=== PATIENT | male | born 1965 | race Hispanic/Latino ===

== ENCOUNTER 2019-02-19 06:18 | Inpatient (IN) | payer OTHER ==
[2019-02-19] MEDS ORDERED: Sodium Chloride 0.9% 1,000 ML IV SCH (06:30)
[2019-02-19] MEDS ORDERED: Iodixanol 320 MG/ML 100 ML BOTTLE IV ONE (06:38)
[2019-02-19] MEDS ORDERED: Sodium Chloride 0.9% 50 ML IV ONE (06:38)
--- NOTE | 2019-02-19 06:39 | ED PDOC ---
HPI:STROKE - Time Time: 06:25 - Historian Historian: Patient - Chief Complaint Chief Complaint: Slurred speech, Facial droop, Arm weakness - Onset Date: 02/19/19 Onset: This morning - Timing Timing: Currently Symptomatic - Location Location: Speech Locate right:: Face, Upper extremity - TPA Positive for Contraindication: No Reason tPA is not being Administered: Out of window for TPA (>6 hours) - Notes: Notes:: 53 year old male with HTN and diabetes presents to the ED via EMS for evaluation of a right upper extremity weakness, slurred speech and facial droop. Patient reports he was out drinking with his friends, came home at 00:30 and went to bed. He states that he woke up around 4 am and felt weakness in his right upper extremity. Patient states he then returned to sleep for an hour and awoke at 5AM with garbled speech and that his face looked asymmetrical. He waited an hour before calling EMS at approximately 6AM. According to EMS, when they arrived to the patient's residence he was hypertensive and hyperglycemic. Patient reports he has been non-compliant with medications for over two years. PMD: none provided NIHSS Stroke Scale - Date/Time Evaluation Performed Date Performed: 02/19/19 Time Performed: 06:25 When Was NIHSS Performed: Baseline - How Severe is the Stroke Level of Consciousness: 0=Alert LOC to Questions: 0=Both comments correct LOC to commands: 0=Obeys both correctly Best Gaze: 0=Normal Visual: 0=No visual loss Facial: 2=Partial (lower face paralysis) Motor Arm - Left: 0=No drift Motor Arm - Right: 1=Drift noted before 10 sec Motor Leg - Left: 0=No drift Motor Leg - Right: 0=No drift Limb Ataxia: 0=Absent Sensory: 0=Normal Best Language: 0=No aphasia Dysarthia: 1=Mild to moderate slurring Extinction & Inattention (Neglect): 0=Normal, no object Score: 4 rTPA Inclusion/Exclusion - Refusal of Treatment Patient Refused Treatment: No - Inclusion Criteria for Altepase All of the below criteria for inclusion were reviewed: Yes Patient is 18 years or Older: Yes The Clinical Diagnosis of Ischemic Stroke That is Causing a Potentially Disabling Neurological Deficit: Yes Time of Onset is Well Established to be Less Than 270 Minute Before Treatment Would Begin: Yes Risk/Benefit Discussed With Patient/Family Member Present: Yes Past Medical History Reviewed: Historical Data, Nursing Documentation, Vital Signs Vital Signs: Last Vital Signs Temp 98.5 F 02/19/19 06:23 Pulse 95 H 02/19/19 06:23 Resp 18 02/19/19 06:23 BP 172/90 H 02/19/19 06:23 Pulse Ox 98 02/19/19 06:23 - Medical History PMH: Diabetes, HTN - Family History Family History: States: Unknown Family Hx - Allergies Allergies/Adverse Reactions: Allergies Allergy/AdvReac Type Severity Reaction Status Date / Time No Known Allergies Allergy Verified 02/19/19 06:27 Review of Systems ROS Statement: Except As Marked, All Systems Reviewed And Found Negative Neurological: Positive for: Weakness (in right upper extremity), Change in Speech, Other (right sided facial droop) Physical Exam - Reviewed Nursing Documentation Reviewed: Yes Vital Signs Reviewed: Yes - Physical Exam Appears: Positive for: No Acute Distress Head Exam: Positive for: ATRAUMATIC, NORMAL INSPECTION, NORMOCEPHALIC Skin: Positive for: Normal Color, Warm, Dry Eye Exam: Positive for: EOMI, Normal appearance, PERRL ENT: Positive for: Normal ENT Inspection Neck: Positive for: Normal Cardiovascular/Chest: Positive for: Regular Rate, Rhythm. Negative for: Murmur Respiratory: Positive for: Normal Breath Sounds. Negative for: Respiratory Distress Back: Positive for: Normal Inspection Extremity: Positive for: Other (Drift in right upper extremity). Negative for: Deformity Neurological/Psych: Positive for: Awake, Alert, Normal Tone, Motor/Sensory Deficits (RUE weakness, 4/5), work checker II-XII (R sided facial droop), Facial Droop (right sided), Other (slurred speech; 4/5 strength in right upper extremity, 5/5 strength in all other extremities. ). Negative for: Symmetric/Intact Strength - Laboratory Results Result Diagrams: 02/19/19 06:41 02/19/19 06:41 - ECG ECG Rhythm: Positive for: Normal QRS, Normal ST Segment, Sinus Rhythm Rate: 84 O2 Sat by Pulse Oximetry: 98 (RA) Pulse Ox Interpretation: Normal - Core Measure Core Measure Indicators: Code Stroke - Critical Care Total Time (In Min): 90 Documented Critical Care: Time excludes all time spent performint seperately billable procedures Medical Decision Making Medical Decision Makin:25 MDM: Patient representing acute CVA of possible left MCA territory based on clinical findings Patient is well out of window of tPA given last known well time was 6 hours ago. Code Stroke called. Dr. Leal is aware of patient Orders: --Blood type and screen --CT Head --CTA Head and Neck Bundle --EKG --Alcohol serum --CMP --CBC --UDS --Hemoglobin A1C --Lipid panel --Troponin --PTT --PT --CXR --NS IV 1,000 mls --Stroke Team consult 715 --Patient's clincial status unchanged, labetolol ordered --CT/CTA negative, Dr. Leal updated --Will admit to Dr. Sharpe's service, will allow for permissive HTN --Condition: serious --- Scribe Attestation: Documented by Bere Iqbal, acting as a scribe Nidia Wolf MD Provider Scribe Attestation: All medical record entries made by the Scribe were at my direction and personally dictated by me. I have reviewed the chart and agree that the record accurately reflects my personal performance of the history, physical exam, medical decision making, and the department course for this patient. I have also personally directed, reviewed, and agree with the discharge instructions and d isposition. Disposition - Clinical Impression Clinical Impression: CVA (cerebral vascular accident) - Patient ED Disposition Is Patient to be Admitted: Yes Discussed With : Michael Leal Doctor Will See Patient In The: Hospital Counseled Patient/Family Regarding: Studies Performed - Disposition Disposition Time: 07:15 Condition: SERIOUS Forms: [facility] (Urdu)
[2019-02-19 06:44] LABS: BASO % 0.9 % (0.0-2.0); EOS # 0.2 K/uL (0.0-0.7); EOS % 3.9 % (0.0-4.0); HEMOGLOBIN 13.7 g/dL (12.0-18.0); LYMPH # 0.7 K/uL (1.0-4.3); LYMPH % 15.5 % (20.0-40.0); MEAN CELL VOLUME 91.2 fl (80.0-94.0); MEAN CORPUSCULAR HEMOGLOBIN 31.4 pg (27.0-31.0); MEAN CORPUSCULAR HGB CONC 34.5 g/dL (33.0-37.0); MEAN PLATELET VOLUME 8.5 fl (7.2-11.7); MONO # 0.6 K/uL (0.0-0.8); MONO % 11.5 % (0.0-10.0); NEUT # 3.3 K/uL (1.8-7.0); NEUT % 68.2 % (50.0-75.0); RBC 4.35 Mil/uL (4.40-5.90); RED CELL DISTRIBUTION WIDTH 12.3 % (11.5-14.5); WHITE BLOOD COUNT 4.8 K/uL (4.8-10.8)
[2019-02-19 06:49] LABS: INR 0.9; PROTHROMBIN TIME 10.2 Seconds (9.8-13.1)
[2019-02-19 06:51] LABS: PARTIAL THROMBOPLASTIN TIME 29.6 Seconds (25.6-37.1)
[2019-02-19] MEDS ORDERED: Labetalol 5mg/ml (4ml) IVP STA (06:58)
[2019-02-19] MEDS ORDERED: Labetalol 5mg/ml (4ml) ONE (07:01)
[2019-02-19 07:04] LABS: ALB/GLOB RATIO 1.6 (1.0-2.1); ALBUMIN 4.1 g/dL (3.5-5.0); ALT/SGPT 39 U/L (21-72); AST/SGOT 24 U/L (17-59); BLOOD UREA NITROGEN 16 mg/dl (9-20); CALCIUM 9.2 mg/dL (8.4-10.2); GFR NON-AFRICAN AMERICAN > 60; HDL CHOLESTEROL 45 MG/DL (30-70)
[2019-02-19 07:05] LABS: LDL CHOLESTEROL 149 mg/dL (0-129)
[2019-02-19] MEDS ORDERED: Insulin Regular 100 units/ml IV STA (07:18)
[2019-02-19 07:52] LABS: BARBITURATES, UR NEGATIVE (NEGATIVE); BENZODIAZEPINES, UR NEGATIVE (NEGATIVE); OPIATES, UR NEGATIVE (NEGATIVE); PHENCYCLIDINE, UR NEGATIVE (NEGATIVE)
[2019-02-19 08:28] LABS: VENOUS BLOOD GAS PCO2 42 mmHg (40-60); VENOUS BLOOD GAS PO2 54 mm/Hg (30-55)
[2019-02-19] MEDS ORDERED: Insulin Regular 100 units/ml ONE (09:11)
--- NOTE | 2019-02-19 09:25 | CT ---
Date of service: 02/19/2019 PROCEDURE: CT HEAD WITHOUT CONTRAST. HISTORY: R sided facial droop, RUE weakness COMPARISON: None available. TECHNIQUE: Axial computed tomography images were obtained through the head/brain without intravenous contrast. Radiation dose: Total exam DLP = 1711.99 mGy-cm. This CT exam was performed using one or more of the following dose reduction techniques: Automated exposure control, adjustment of the mA and/or kV according to patient size, and/or use of iterative reconstruction technique. FINDINGS: HEMORRHAGE: No intracranial hemorrhage. BRAIN: No mass effect or edema. No atrophy or chronic microvascular ischemic changes. VENTRICLES: Unremarkable. No hydrocephalus. CALVARIUM: Unremarkable. PARANASAL SINUSES: Mild chronic ethmoid, sphenoid and left maxillary sinusitis.. MASTOID AIR CELLS: Unremarkable as visualized. No inflammatory changes. OTHER FINDINGS: None. IMPRESSION: No intracranial mass, hemorrhage or evidence of acute infarct. Mild chronic ethmoid sinusitis. Otherwise unremarkable. The preliminary findings for this examination were reported by [facility] [[email or web address]] Radiology at 6:41 a.m. on 02/19/2019. There is concurrence of this report with the preliminary findings.
--- NOTE | 2019-02-19 09:43 | RAD ---
Date of service: 02/19/2019 HISTORY: Code Stroke COMPARISON: Not available TECHNIQUE: 1 view obtained. FINDINGS: LUNGS: No active pulmonary disease. PLEURA: No significant pleural effusion identified, no pneumothorax apparent. CARDIOVASCULAR: No aortic atherosclerotic calcification present. Normal cardiac size. No pulmonary vascular congestion. OSSEOUS STRUCTURES: No significant abnormalities. VISUALIZED UPPER ABDOMEN: Normal. OTHER FINDINGS: None. IMPRESSION: No active disease.
--- NOTE | 2019-02-19 11:36 | CT ---
Date of service: 02/19/2019 PROCEDURE: CT Angiography of the Head and Neck. HISTORY: R sided facial droop, slurred speech, RUE weakness COMPARISON: None available. TECHNIQUE: CT angiography of the head and neck was performed following intravenous contrast administration. Coronal and sagittal maximum intensity projection reformatted images were generated. Contrast Dose: Visipaque 320, 95 cc Radiation dose: Total exam DLP = 606.14 mGy-cm. This CT exam was performed using one or more of the following dose reduction techniques: Automated exposure control, adjustment of the mA and/or kV according to patient size, and/or use of iterative reconstruction technique. FINDINGS: INTERNAL CEREBRAL ARTERIES: Note is made of limited non calcified atherosclerosis of the bilateral cavernous internal carotid artery segments without significant stenosis. The skull base, petrous, and supraclinoid segments are bilaterally widely patent. ANTERIOR CEREBRAL ARTERIES: Unremarkable. A1 and A2 segments are widely patent. Smaller distal branches unremarkable, as visualized. MIDDLE CEREBRAL ARTERIES: Unremarkable. M1 and M2 segments are widely patent. Perisylvian branches grossly symmetric. POSTERIOR CIRCULATION: Basilar Artery: Unremarkable. Distal Vertebral Arteries: Unremarkable. Posterior Cerebral Arteries: Unremarkable. Posterior Inferior Cerebellar Arteries: Unremarkable. NECK CTA: Aortic Arch: Conjoint origin brachiocephalic and left common carotid artery. Common Carotid arteries: The bilateral common carotid appear widely patent from their origins to their bifurcations with no significant stenosis appreciated. No evidence to suggest common carotid artery dissection. Internal Carotid arteries: No significant stenosis is appreciated throughout the cervical internal carotid artery segments bilaterally and there is no evidence of dissection either. External Carotid arteries: Appear unremarkable bilaterally. Vertebral arteries: The bilateral vertebral arteries appear normal in caliber from their origins to their distal cervical segments. No significant stenosis or definite pattern of dissection. ANEURYSM/ VASCULAR MALFORMATIONS: None. OTHER FINDINGS: Nodular changes are suspected at the right thyroid lobe. Follow-up thyroid ultrasound advised if not already performed. Nodular mucosal or mucoid changes are identified at the left greater than right maxillary sinuses on a subacute to chronic basis. Underlying polyps not excluded. IMPRESSION: Limited noncalcified atherosclerosis suspected at the bilateral cavernous ICA segments bilaterally. No definite occlusion or significant stenosis identified within the intracranial circulation as demonstrated. Widely patent bilateral common and internal carotid arteries as discussed. Incidental nodular changes are suspected at the right thyroid lobe for which follow-up thyroid ultrasound is advised on elective basis. Sinus disease bilateral maxillary sinuses, as discussed above. Concordant with vascular interpretation by [facility] 02/19/2019, 7:14 a.m.. Discordant with incidental findings at the right lobe thyroid gland not included in preliminary report. PA review assigned.
--- NOTE | 2019-02-19 11:45 | MRI ---
Date of service: 02/19/2019 PROCEDURE: MRI BRAIN WITHOUT CONTRAST HISTORY: CVA COMPARISON: Noncontrast head CT 02/19/2019. TECHNIQUE: Multiplanar, multisequence MR images of the brain were obtained without intravenous contrast enhancement. FINDINGS: HEMORRHAGE: None DWI: There is restricted diffusion identified at the posterior superior left basal ganglia compatible with an acute or subacute infarct. No mass-effect related. BRAIN PARENCHYMA: Intrinsic signal throughout the curiel and white matter structures above below the tentorium appears within normal limits including the brainstem, despite diffusion-weighted findings noted above. There is no mass effect, parenchymal edema or loss of the corticomedullary differentiation. Midline brain anatomy appears within normal limits including the corpus callosum, brainstem and craniocervical junction. There is no suspicious extra-axial fluid collection identified. VENTRICLES: Unremarkable. No hydrocephalus. CRANIUM: Unremarkable. ORBITS: Grossly unremarkable. PARANASAL SINUSES/MASTOIDS: Mucosal inflammatory changes affect multiple bilateral ethmoid and right sphenoid sinuses as well as right frontal sinus. Questionable polyps or cysts are identified at left maxillary sinus with additional mucosal inflammatory changes associated. Mucosal inflammatory changes noted right maxillary sinus. VASCULAR SYSTEM: Skull base flow voids intact. OTHER FINDINGS: None. IMPRESSION: An acute subacute infarct affects the posterior superior left basal ganglia. No intracranial hemorrhage or definite mass effect appreciable at this time. Intrinsic signal throughout the brain is otherwise within normal limits. Incidental sinus disease noted as discussed above. Findings discussed with Dr. Brooks with written down and read back verification 02/19/2019, 11:30 a.m..
[2019-02-19 15:10] VITALS: BMI 34.4
[2019-02-19] MEDS: Insulin Lispro (humaLOG) 100 Units/ml Inj SC SCH ×2 (17:00→21:41)
[2019-02-19] MEDS: Sodium Chloride 0.9% 1,000 ML IV SCH (17:02)
--- NOTE | 2019-02-19 17:07 | CP.PCM.CON ---
History of Present Illness - History of Present Illness History of Present Illness: Neurology consult called by Dr. Tam Mr. Webb has NIHSS of 6, and was not TPA candidate because time of onset was not known and beyond the window. His symptoms started somewhere between midnight and 4 am. His stroke is most likely embolic and we will do ECHO with bubble study. Neurology consult dictated. Thank you Dr. Leal Neurology Past Patient History - Past Medical History & Family History Past Medical History?: Yes - Past Social History Smoking Status: Never Smoked - CARDIAC Hx Cardiac Disorders: Yes Hx Atrial Fibrillation: Yes (atrial flutter) Hx Hypertension: Yes - ENDOCRINE/METABOLIC Hx Endocrine Disorders: Yes - HEMATOLOGICAL/ONCOLOGICAL Hx AIDS: No Hx Human Immunodeficiency Virus (HIV): No - MUSCULOSKELETAL/RHEUMATOLOGICAL Hx Falls: No - PSYCHIATRIC Hx Substance Use: No - SURGICAL HISTORY Other/Comment: Ablation therapy - ANESTHESIA Hx Anesthesia: Yes Hx Anesthesia Reactions: No Meds Allergies/Adverse Reactions: Allergies Allergy/AdvReac Type Severity Reaction Status Date / Time No Known Allergies Allergy Verified 02/19/19 06:27 - Medications Medications: Current Medications Aspirin (Aspirin Supp) 300 mg NV DAILY APRIL Enoxaparin Sodium (Lovenox) 40 mg SC DAILY APRIL; Protocol Sodium Chloride (Sodium Chloride 0.9%) 1,000 mls @ 100 mls/hr IV .Q10H APRIL Sodium Chloride (Sodium Chloride 0.9%) 1,000 mls @ 100 mls/hr IV .Q10H APRIL Stop: 02/20/19 13:28 Insulin Human Lispro (Humalog) 0 units SC ACHS APRIL; Protocol Results - Vital Signs Recent Vital Signs: Last Vital Signs Temp 99.0 F 02/19/19 16:00 Pulse 79 02/19/19 16:00 Resp 15 02/19/19 16:00 BP 134/71 02/19/19 16:00 Pulse Ox 95 02/19/19 16:00 - Labs Result Diagrams: 02/19/19 06:41 02/19/19 06:41 Labs: Laboratory Results - last 24 hr 02/19/19 02/19/19 02/19/19 06:41 06:41 06:41 WBC 4.8 RBC 4.35 L Hgb 13.7 Hct 39.7 MCV 91.2 MCH 31.4 H MCHC 34.5 RDW 12.3 Plt Count 209 MPV 8.5 Neut % (Auto) 68.2 Lymph % (Auto) 15.5 L [place] % (Auto) 11.5 H Eos % (Auto) 3.9 Baso % (Auto) 0.9 Neut # (Auto) 3.3 Lymph # (Auto) 0.7 L [place] # (Auto) 0.6 Eos # (Auto) 0.2 Baso # (Auto) 0.0 PT INR APTT pO2 VBG pH VBG pCO2 VBG HCO3 VBG Total CO2 VBG O2 Sat (Calc) VBG Base Excess VBG Potassium Glucose Lactate FiO2 Crit Value Called To Crit Value Called By Crit Value Read Back Blood Gas Notified Time Sodium 133 Potassium 4.5 Chloride 98 Carbon Dioxide 25 Anion Gap 15 BUN 16 Creatinine 0.8 Est GFR ( Amer) > 60 Est GFR (Non-Af Amer) > 60 POC Glucose (mg/dL) Random Glucose 419 H* Hemoglobin A1c 11.5 H Calcium 9.2 Total Bilirubin 0.6 AST 24 ALT 39 Alkaline Phosphatase 79 Troponin I < 0.0120 Total Protein 6.6 Albumin 4.1 Globulin 2.5 Albumin/Globulin Ratio 1.6 Triglycerides 305 H Cholesterol 231 H LDL Cholesterol Direct 149 H HDL Cholesterol 45 Venous Blood Potassium Urine Opiates Screen Urine Methadone Screen Ur Barbiturates Screen Ur Phencyclidine Scrn Ur Amphetamines Screen U Benzodiazepines Scrn U Oth Cocaine Metabols U Cannabinoids Screen Alcohol, Quantitative < 10 Blood Type Antibody Screen BBK History Checked 02/19/19 02/19/19 02/19/19 06:41 06:42 07:15 WBC RBC Hgb Hct MCV MCH MCHC RDW Plt Count MPV Neut % (Auto) Lymph % (Auto) [place] % (Auto) Eos % (Auto) Baso % (Auto) Neut # (Auto) Lymph # (Auto) [place] # (Auto) Eos # (Auto) Baso # (Auto) PT 10.2 INR 0.9 APTT 29.6 pO2 VBG pH VBG pCO2 VBG HCO3 VBG Total CO2 VBG O2 Sat (Calc) VBG Base Excess VBG Potassium Glucose Lactate FiO2 Crit Value Called To Crit Value Called By Crit Value Read Back Blood Gas Notified Time Sodium Potassium Chloride Carbon Dioxide Anion Gap BUN Creatinine Est GFR ( Amer) Est GFR (Non-Af Amer) POC Glucose (mg/dL) Random Glucose Hemoglobin A1c Calcium Total Bilirubin AST ALT Alkaline Phosphatase Troponin I Total Protein Albumin Globulin Albumin/Globulin Ratio Triglycerides Cholesterol LDL Cholesterol Direct HDL Cholesterol Venous Blood Potassium Urine Opiates Screen Negative Urine Methadone Screen Negative Ur Barbiturates Screen Negative Ur Phencyclidine Scrn Negative Ur Amphetamines Screen Negative U Benzodiazepines Scrn Negative U Oth Cocaine Metabols Negative U Cannabinoids Screen Negative Alcohol, Quantitative Blood Type O NEGATIVE Antibody Screen Negative BBK History Checked No verified bt 02/19/19 02/19/19 08:22 11:11 WBC RBC Hgb Hct MCV MCH MCHC RDW Plt Count MPV Neut % (Auto) Lymph % (Auto) [place] % (Auto) Eos % (Auto) Baso % (Auto) Neut # (Auto) Lymph # (Auto) [place] # (Auto) Eos # (Auto) Baso # (Auto) PT INR APTT pO2 54 VBG pH 7.40 VBG pCO2 42 VBG HCO3 25.4 VBG Total CO2 27.3 VBG O2 Sat (Calc) 91.4 H VBG Base Excess 1.0 VBG Potassium 4.1 Glucose 404 H* Lactate 2.7 H FiO2 21.0 Crit Value Called To Dorinda hansen Crit Value Called By 23 Crit Value Read Back Y Blood Gas Notified Time 823 Sodium 133.0 Potassium Chloride 98.0 Carbon Dioxide Anion Gap BUN Creatinine Est GFR ( Amer) Est GFR (Non-Af Amer) POC Glucose (mg/dL) 400 H* Random Glucose Hemoglobin A1c Calcium Total Bilirubin AST ALT Alkaline Phosphatase Troponin I Total Protein Albumin Globulin Albumin/Globulin Ratio Triglycerides Cholesterol LDL Cholesterol Direct HDL Cholesterol Venous Blood Potassium 4.1 Urine Opiates Screen Urine Methadone Screen Ur Barbiturates Screen Ur Phencyclidine Scrn Ur Amphetamines Screen U Benzodiazepines Scrn U Oth Cocaine Metabols U Cannabinoids Screen Alcohol, Quantitative Blood Type Antibody Screen BBK History Checked
--- NOTE | 2019-02-19 19:06 | CARD ---
APPROVED REPORT Date of service: 02/19/2019 EKG Measurement Heart [id number] <Conclusion> Normal sinus rhythm Normal ECG
[2019-02-20] MEDS: Sodium Chloride 0.9% 1,000 ML IV SCH (02:26)
--- NOTE | 2019-02-20 02:31 | CON ---
DATE: 02/19/2019 Neurology consult called by Dr. Jean Marie Wolf in the emergency room. HISTORY OF PRESENT ILLNESS: Mr. Webb is a 53-year-old male with past medical history of diabetes and high blood pressure who was noncompliant with medications for several years, who presented at 06:25 in the morning after having gotten up with an acute onset of aphasia and right-sided facial droop as well as right arm weakness. He stated that he was drinking quite a bit last night and he came on at 12:30 in the morning, went to sleep, woke up around 4 a.m., felt weakness in the right upper extremity, went back to sleep and woke up at 5 a.m. with garbled speech with asymmetric face. He waited for an hour because he was confused as to what was happening. At 6 a.m., EMS picked him up and he was found to be hypertensive and hyperglycemic, but he is now the patient who has not gone to the physician, has not taken his medication and he denies having any of these episodes before. On examination this afternoon, the patient stated that he had no headache. No nausea, no vomiting. No diarrhea. NIH stroke scale was 4. PAST MEDICAL HISTORY: High blood pressure, diabetes type 2. SURGICAL HISTORY: Significant for ablation of his heart five years ago secondary to paroxysmal supraventricular tachycardia. It is noted that the patient was not placed on Coumadin, diagnosed with AFib, but that his profile stitching machine operator was quite suspicious. At that point, the patient stopped going to see his physician. FAMILY HISTORY AND SOCIAL HISTORY: The patient drinks several nights a week and admits to binge drinking several times a month. Social history, he is not working currently, no tobacco. ALLERGIES: NO KNOWN DRUG ALLERGIES. PHYSICAL EXAMINATION: GENERAL: The patient is alert, oriented x3. VITAL SIGNS: Blood pressure 132/90, respiratory rate 18, pulse 95, temperature 98.5. HEENT: Pupils are equal, round, and reactive to light. EOMI. NEUROLOGIC: Cranial nerves II through XII are normal, except for right-sided facial droop. Speech is fluent. There is dysarthria. He can name and repeat. There is no apraxia. Mini mental status is 30/30. Motor, tone is normal. Strength is 2/5 in the right upper extremity, electric bath attendant is 3/5. He is able to lift his arm above the bed but it falls after 5 seconds. Right leg is 4-/5, left upper and lower are 5/5. There is decreased fine touch and pin in the right face, arm and leg as compared to the left, but it is normal. Gait has not been tested. Reflex 2+ in upper and lower limbs bilaterally. Toes are downgoing. There is no clonus. LABORATORY DATA: CT of the head was done and is normal. CTA of the head and neck was done that shows the following. CTA of the head and neck shows that there is limited non-calcified atherosclerosis with bilateral bilaterally. There is no intracranial occlusion noted. MRI of the brain was done as well by the time I saw the patient and shows that he has a posterior superior left basal ganglia stroke. IMPRESSION: This is a 53-year-old male with possible atrial fibrillation, history of supraventricular tachycardia status post ablation, who now has an acute ischemic most likely embolic stroke in the left internal capsule resulting in right-sided weakness. PLAN: 1. Stroke workup. 2. Aspirin 325 mg. 3. Please keep blood pressure between 180 to 190/90 diastolic. 4. IV normal saline 100 mL per hour. 5. CTA of the head and neck will be further interpreted by endovascular team. 6. Echocardiogram with bubble study, possible MISAEL. 7. PT/ST/OT. 8. Prognosis is good. The patient should go to rehab after all workup is completed. 9. Hypercoagulable workup including factor V Leiden, protein C and S and prothrombin gene mutation, homocysteine. Thank you for this interesting consult. Michael Leal MD
[2019-02-20 04:49] LABS: HEMOGLOBIN 13.6 g/dL (12.0-18.0); MEAN CELL VOLUME 91.9 fl (80.0-94.0); MEAN CORPUSCULAR HEMOGLOBIN 31.4 pg (27.0-31.0); MEAN CORPUSCULAR HGB CONC 34.2 g/dL (33.0-37.0); RBC 4.31 Mil/uL (4.40-5.90); RED CELL DISTRIBUTION WIDTH 12.5 % (11.5-14.5); WHITE BLOOD COUNT 5.2 K/uL (4.8-10.8)
[2019-02-20 06:22] LABS: ALB/GLOB RATIO 1.6 (1.0-2.1); ALBUMIN 3.9 g/dL (3.5-5.0); ALT/SGPT 36 U/L (21-72); AST/SGOT 21 U/L (17-59); BLOOD UREA NITROGEN 12 mg/dl (9-20); GFR NON-AFRICAN AMERICAN > 60
[2019-02-20] MEDS: Insulin Lispro (humaLOG) 100 Units/ml Inj SC SCH ×4 (06:54→22:00)
[2019-02-20] MEDS ORDERED: Pneumococcal 23-Valent Vaccine IM ONE (08:00)
[2019-02-20] MEDS: Enoxaparin 40 mg Syringe SC SCH (09:34)
--- NOTE | 2019-02-20 10:33 | CT ---
Date of service: 02/20/2019 PROCEDURE: CT HEAD WITHOUT CONTRAST. HISTORY: follow up code stroke COMPARISON: Noncontrast head CT 02/19/2019 6:29 a.m. and noncontrast brain MRI 02/19/1910 10 a.m.. TECHNIQUE: Axial computed tomography images were obtained through the head/brain without intravenous contrast. Radiation dose: Total exam DLP = 929.0 mGy-cm. This CT exam was performed using one or more of the following dose reduction techniques: Automated exposure control, adjustment of the mA and/or kV according to patient size, and/or use of iterative reconstruction technique. FINDINGS: HEMORRHAGE: No intracranial hemorrhage. BRAIN: Lucency is now apparent at the superior and mid left basal ganglia extending somewhat into the periventricular white matter lateral to the left lateral ventricle with no mass effect appreciated at this time. This corresponds well with restricted diffusion pattern in prior brain MRI 02/19/2019. No definite additional interval focal lucency throughout the brain. For the cerebrum is unremarkable swells the cerebellum and brainstem. Exclusive of this area of lucency, good corticomedullary differentiation is noted. No interval suspicious extra-axial fluid collection identified. VENTRICLES: Unremarkable. No hydrocephalus. CALVARIUM: Unremarkable. PARANASAL SINUSES: Unremarkable as visualized. No significant inflammatory changes. MASTOID AIR CELLS: Unremarkable as visualized. No inflammatory changes. OTHER FINDINGS: None. IMPRESSION: Interval lucency superior and mid left basal ganglia now identified representing acute subacute infarct demonstrated in prior brain MRI 02/19/2019 as per above. No interval intracranial hemorrhage or mass-effect.
--- NOTE | 2019-02-20 14:40 | CP.PCM.PN ---
Subjective - Date & Time of Evaluation Date of Evaluation: 02/20/19 Time of Evaluation: 14:45 - Subjective Subjective: Neurology progress note: Patient continues to have NIHSS of 6, no headache, no nausea, no vomiting. No new complaints. ROS: as above. On exam: AAOX3. PERRL. Right sided facial droop. Slight dysarthria. right sided weakness 3/5 same as admission. Decreased ft, pin right face, arm, leg. gait not tested. +2 dtr ul and ll bl. Toes downgoing. No clonus. Objective - Vital Signs/Intake and Output Vital Signs (last 24 hours): Temp Pulse Resp BP Pulse Ox 98.5 F 73 11 L 166/90 H 97 02/20/19 12:00 02/20/19 12:00 02/20/19 12:00 02/20/19 12:00 02/20/19 12:00 Intake and Output: 02/20/19 02/20/19 06:59 18:59 Output Total 680 Balance -680 - Medications Medications: Current Medications Aspirin (Aspirin) 325 mg PO DAILY [facility] Last Admin: 02/20/19 10:15 Dose: 325 mg Atorvastatin Calcium (Lipitor) 40 mg PO DAILY [facility] Enoxaparin Sodium (Lovenox) 40 mg SC DAILY [facility]; Protocol Last Admin: 02/20/19 09:34 Dose: 40 mg Sodium Chloride (Sodium Chloride 0.9%) 1,000 mls @ 100 mls/hr IV .Q10H [facility] Insulin Human Lispro (Humalog) 0 units SC ACHS [facility]; Protocol Last Admin: 02/20/19 11:26 Dose: 6 units - Labs Labs: 02/20/19 04:15 02/20/19 04:15 PT 10.2 Seconds (9.8-13.1) 02/19/19 06:41 INR 0.9 02/19/19 06:41 APTT 31.0 Seconds (25.6-37.1) 02/20/19 04:15 Assessment and Plan - Assessment and Plan (Free Text) Assessment: CT head repeat: shows evolving hypodensity in left basal ganglia. Stroke workup: CTA complete. PT ST OT Echo with bubble study pending. Plan: 1. Continue aspirin 2. PT ST OT Our team will follow DR. Leal Neurology
[2019-02-21] MEDS: Enoxaparin 40 mg Syringe SC SCH (09:34)
[2019-02-21] MEDS: Insulin Lispro (humaLOG) 100 Units/ml Inj SC SCH ×4 (09:35→21:57)
--- NOTE | 2019-02-21 15:20 | CP.PCM.PN ---
Subjective - Date & Time of Evaluation Date of Evaluation: 02/21/19 Time of Evaluation: 10:00 - Subjective Subjective: Patient continues to have right sided facial droop, right sided arm and leg weakness. I am not appreciating much improvement since yesterday. ECHO pending. ROS; malaise, fatigue, no headache, no nausea, no vomiting. On exam: NIHSS: 6 AAOX3. PERRL. Cn 2-12 normal. Right sided facial droop. RIght sided weakness arm more than leg: biceps, triceps: 3/5, pain coordinator: 4/5 Right le-/5 diffusely DTR: +1 ul and ll bl. Toes downgoing. No clonus. Gait not tested. Objective - Vital Signs/Intake and Output Vital Signs (last 24 hours): Temp Pulse Resp BP Pulse Ox 98.1 F 68 18 148/93 H 100 02/21/19 11:49 02/21/19 11:49 02/21/19 11:49 02/21/19 11:49 02/21/19 11:49 - Medications Medications: Current Medications Aspirin (Aspirin) 325 mg PO DAILY [facility] Last Admin: 02/21/19 09:34 Dose: 325 mg Atorvastatin Calcium (Lipitor) 40 mg PO DAILY [facility] Last Admin: 02/21/19 09:35 Dose: 40 mg Clopidogrel Bisulfate (Plavix) 75 mg PO DAILY [facility] Enoxaparin Sodium (Lovenox) 40 mg SC DAILY [facility]; Protocol Last Admin: 02/21/19 09:34 Dose: 40 mg Sodium Chloride (Sodium Chloride 0.9%) 1,000 mls @ 100 mls/hr IV .Q10H [facility] Insulin Human Lispro (Humalog) 0 units SC [facility]; Protocol Last Admin: 02/21/19 12:30 Dose: 6 units - Labs Labs: 02/20/19 04:15 02/20/19 04:15 PT 10.2 Seconds (9.8-13.1) 02/19/19 06:41 INR 0.9 02/19/19 06:41 APTT 31.0 Seconds (25.6-37.1) 02/20/19 04:15 Assessment and Plan - Assessment and Plan (Free Text) Assessment: 53 yr old male with acute stroke
[2019-02-22] MEDS: Insulin Lispro (humaLOG) 100 Units/ml Inj SC SCH ×4 (06:49→22:02)
[2019-02-22] MEDS: Enoxaparin 40 mg Syringe SC SCH (10:21)
--- NOTE | 2019-02-23 04:47 | CP.PCM.HP ---
Past Patient History - Past Medical History & Family History Past Medical History?: Yes - Past Social History Smoking Status: Never Smoked - CARDIAC Hx Cardiac Disorders: Yes Hx Atrial Fibrillation: Yes (atrial flutter) Hx Hypertension: Yes - ENDOCRINE/METABOLIC Hx Endocrine Disorders: Yes - HEMATOLOGICAL/ONCOLOGICAL Hx AIDS: No Hx Human Immunodeficiency Virus (HIV): No - MUSCULOSKELETAL/RHEUMATOLOGICAL Hx Falls: No - PSYCHIATRIC Hx Substance Use: No - SURGICAL HISTORY Other/Comment: Ablation therapy - ANESTHESIA Hx Anesthesia: Yes Hx Anesthesia Reactions: No Meds Allergies/Adverse Reactions: Allergies Allergy/AdvReac Type Severity Reaction Status Date / Time No Known Allergies Allergy Verified 02/19/19 06:27 Results - Vital Signs Recent Vital Signs: Last Vital Signs Temp 97.6 F 02/23/19 00:21 Pulse 64 02/23/19 00:21 Resp 18 02/23/19 00:21 BP 143/83 02/23/19 00:21 Pulse Ox 97 02/23/19 00:21 - Labs Result Diagrams: 02/20/19 04:15 02/20/19 04:15 Labs: Laboratory Results - last 24 hr 02/20/19 02/22/19 02/22/19 16:09 05:35 10:49 POC Glucose (mg/dL) 247 H 257 H 312 H 02/22/19 02/22/19 15:38 21:17 POC Glucose (mg/dL) 276 H 242 H
--- NOTE | 2019-02-23 04:48 | CP.PCM.PN ---
Subjective - Date & Time of Evaluation Date of Evaluation: 02/20/19 Objective - Vital Signs/Intake and Output Vital Signs (last 24 hours): Temp Pulse Resp BP Pulse Ox 97.6 F 64 18 143/83 97 02/23/19 00:21 02/23/19 00:21 02/23/19 00:21 02/23/19 00:21 02/23/19 00:21 - Medications Medications: Current Medications Aspirin (Aspirin) 325 mg PO DAILY [facility] Last Admin: 02/22/19 10:20 Dose: 325 mg Atorvastatin Calcium (Lipitor) 40 mg PO DAILY [facility] Last Admin: 02/22/19 10:20 Dose: 40 mg Clopidogrel Bisulfate (Plavix) 75 mg PO DAILY [facility] Last Admin: 02/22/19 10:21 Dose: 75 mg Enoxaparin Sodium (Lovenox) 40 mg SC DAILY [facility]; Protocol Last Admin: 02/22/19 10:21 Dose: 40 mg Sodium Chloride (Sodium Chloride 0.9%) 1,000 mls @ 100 mls/hr IV .Q10H [facility] Insulin Human Lispro (Humalog) 0 units SC ACHS [facility]; Protocol Last Admin: 02/22/19 22:02 Dose: Not Given - Labs Labs: 02/20/19 04:15 02/20/19 04:15 PT 10.2 Seconds (9.8-13.1) 02/19/19 06:41 INR 0.9 02/19/19 06:41 APTT 31.0 Seconds (25.6-37.1) 02/20/19 04:15
--- NOTE | 2019-02-23 04:49 | CP.PCM.PN ---
Subjective - Date & Time of Evaluation Date of Evaluation: 02/21/19 Objective - Vital Signs/Intake and Output Vital Signs (last 24 hours): Temp Pulse Resp BP Pulse Ox 97.6 F 64 18 143/83 97 02/23/19 00:21 02/23/19 00:21 02/23/19 00:21 02/23/19 00:21 02/23/19 00:21 - Medications Medications: Current Medications Aspirin (Aspirin) 325 mg PO DAILY [facility] Last Admin: 02/22/19 10:20 Dose: 325 mg Atorvastatin Calcium (Lipitor) 40 mg PO DAILY [facility] Last Admin: 02/22/19 10:20 Dose: 40 mg Clopidogrel Bisulfate (Plavix) 75 mg PO DAILY [facility] Last Admin: 02/22/19 10:21 Dose: 75 mg Enoxaparin Sodium (Lovenox) 40 mg SC DAILY [facility]; Protocol Last Admin: 02/22/19 10:21 Dose: 40 mg Sodium Chloride (Sodium Chloride 0.9%) 1,000 mls @ 100 mls/hr IV .Q10H [facility] Insulin Human Lispro (Humalog) 0 units SC ACHS [facility]; Protocol Last Admin: 02/22/19 22:02 Dose: Not Given - Labs Labs: 02/20/19 04:15 02/20/19 04:15 PT 10.2 Seconds (9.8-13.1) 02/19/19 06:41 INR 0.9 02/19/19 06:41 APTT 31.0 Seconds (25.6-37.1) 02/20/19 04:15
--- NOTE | 2019-02-23 04:50 | CP.PCM.PN ---
Subjective - Date & Time of Evaluation Date of Evaluation: 02/22/19 Objective - Vital Signs/Intake and Output Vital Signs (last 24 hours): Temp Pulse Resp BP Pulse Ox 97.6 F 64 18 143/83 97 02/23/19 00:21 02/23/19 00:21 02/23/19 00:21 02/23/19 00:21 02/23/19 00:21 - Medications Medications: Current Medications Aspirin (Aspirin) 325 mg PO DAILY [facility] Last Admin: 02/22/19 10:20 Dose: 325 mg Atorvastatin Calcium (Lipitor) 40 mg PO DAILY [facility] Last Admin: 02/22/19 10:20 Dose: 40 mg Clopidogrel Bisulfate (Plavix) 75 mg PO DAILY [facility] Last Admin: 02/22/19 10:21 Dose: 75 mg Enoxaparin Sodium (Lovenox) 40 mg SC DAILY [facility]; Protocol Last Admin: 02/22/19 10:21 Dose: 40 mg Sodium Chloride (Sodium Chloride 0.9%) 1,000 mls @ 100 mls/hr IV .Q10H [facility] Insulin Human Lispro (Humalog) 0 units SC ACHS [facility]; Protocol Last Admin: 02/22/19 22:02 Dose: Not Given - Labs Labs: 02/20/19 04:15 02/20/19 04:15 PT 10.2 Seconds (9.8-13.1) 02/19/19 06:41 INR 0.9 02/19/19 06:41 APTT 31.0 Seconds (25.6-37.1) 02/20/19 04:15
[2019-02-23] MEDS: Insulin Lispro (humaLOG) 100 Units/ml Inj SC SCH ×3 (09:51→17:35)
[2019-02-23] MEDS: Enoxaparin 40 mg Syringe SC SCH (09:53)
--- NOTE | 2019-02-23 11:41 | PCM.STROKE ---
Interval History Stroke Date: 02/19/19 No other interval changes in current, PMHx, FHx, SocHx, ROS: other than on note by: (initial neuro h&p) - Treatment Antiplatelet: Acetylsalicylic acid (ASA), Plavix Statin: Atrovastatin - Education Written Stroke Education provided regarding: personal risk factors, stroke warning sign/symptoms, how to activate emergency medical services, need to follow up after discharge Hx Atrial Fibrillation: No Hx Atrial Flutter: Yes (had ablation) - Therapy Notes Physical therapy notes date reviewed: 02/23/19 Occupational therapy notes date reviewed: 02/23/19 Speech therapy notes date reviewed: 02/23/19 I have reviewed care of the patient with: Dr. Meza NIHSS Stroke Scale - Date/Time Evaluation Performed Date Performed: 02/23/19 Time Performed: 11:36 When Was NIHSS Performed: Re-evaluation - How Severe is the Stroke Level of Consciousness: 0=Alert LOC to Questions: 0=Both comments correct LOC to commands: 0=Obeys both correctly Best Gaze: 0=Normal Visual: 0=No visual loss Facial: 2=Partial (lower face paralysis) Motor Arm - Left: 0=No drift Motor Arm - Right: 1=Drift noted before 10 sec Motor Leg - Left: 0=No drift Motor Leg - Right: 0=No drift Limb Ataxia: 0=Absent Sensory: 0=Normal Best Language: 0=No aphasia Dysarthia: 1=Mild to moderate slurring Extinction & Inattention (Neglect): 0=Normal, no object Score: 4 Exam - Vital Sign Vital Signs: Temp Pulse Resp BP Pulse Ox 97.7 F 61 18 139/86 98 02/23/19 08:00 02/23/19 08:00 02/23/19 08:00 02/23/19 08:00 02/23/19 08:00 Constitutional: No distress, Normal appearing Ophthalmoscopic: absent: papilledema, hemorrhage Right Pupil: Reactive Right Pupil Size (in mm): 2 Left Pupil: Reactive Left Pupil Size (in mm): 2 Cardiovascular: Regular rate & rhythm Mental Status: Normal: Orientation, Memory, Attention, Language, Fund of Knowledge Cranial Nerve: Normal: Visual Cifuentes, Extraocular movement intact, Facial Sensation, Hearing, Palate/Tongue Movement, Shoulder Strength. Abnormal: Facial Strength (decreased slightly right side with right side facial asymmetry) Motor: Tone, Bulk Neuro motor strength exam: Left Upper Extremity: 5 (distal 5/5), Right Upper Extremity: 3 (distal 0/5, unable to press operator meat), Left Lower Extremity: 5 (distal 5/5), Right Lower Extremity: 4 (distal 4/5) Sensation: Intact to pin, Vibration, Propriception throughout DTR: Patellar Left: 1+, Patellar Right: 1+ Flexor Plantar Reflex: Normal Coordination: Heel/Craig. absent: Finger/nose (dysmetria to right) Gait: Other (not assessed; PT notes reviewed) Vascular Risk: Hypertension, Diabetes Mellitus, Atrial Flutter, Dietary (binge drinking per pt) - Data reviewed Laboratory results: 02/20/19 04:15 02/20/19 04:15 Triglycerides 305 mg/DL (0-149) H 02/19/19 06:41 Cholesterol 231 mg/dL (0-199) H 02/19/19 06:41 LDL Cholesterol Direct 149 mg/dL (0-129) H 02/19/19 06:41 HDL Cholesterol 45 MG/DL (30-70) 02/19/19 06:41 Hemoglobin A1c 11.5 % (4.2-6.5) H 02/19/19 06:41 Assessment and Plan (1) CVA (cerebral vascular accident) Assessment & Plan: Imaging reviewed: -CTA Head and Neck (02/19/19): Limited noncalcified atherosclerosis suspected at the bilateral cavernous ICA segments bilaterally. No definite occlusion or significant stenosis identified within the intracranial circulation as demonstrated. Widely patent bilateral common and internal carotid arteries as discussed. Incidental nodular changes are suspected at the right thyroid lobe for which follow-up thyroid ultrasound is advised on elective basis. Sinus disease bilateral maxillary sinuses, as discussed above. -CT Head (repeat; 02/20/19): Interval lucency superior and mid left basal ganglia now identified representing acute subacute infarct demonstrated in prior brain MRI 02/19/2019 as per above. No interval intracranial hemorrhage or mass-ef fect. -Brain MRI (02/19/19): An acute subacute infarct affects the posterior superior left basal ganglia. No intracranial hemorrhage or definite mass effect appreciable at this time. Intrinsic signal throughout the brain is otherwise within normal limits. Incidental sinus disease noted as discussed above. -CT Head (02/19/19): No intracranial mass, hemorrhage or evidence of acute infarct. Mild chronic ethmoid sinusitis. Otherwise unremarkable. -ECHO with Bubble Study ordered, pending---will f/u with results. If no PFO/ASD, pt may go to acute rehab. -Continue ASA, Plavix, and Statin. -Continue PT/OT. -Education initiated by me regarding secondary stroke risk factors such as h/o a-flutter, DM and uncontrolled HTN. Will request a referral for beauty school instructor to provide pt with dietary education. -Agree with plan to d/c to acute rehab. -If pt is d/c to acute rehab today or early tomorrow morning, he should f/u with Dr. Meza in the office for the stroke within 1 month. I have also discussed with him following up with cardiology and internal med upon d/c home. -Notify neuro team of any acute changes in pt's condition. Vanda John, BERTA, [employer] d/w Dr. Meza Status: Acute
[2019-02-23 15:34] VITALS: O2SAT 97
--- NOTE | 2019-02-23 16:03 | CARD ---
APPROVED REPORT Date of service: 02/23/2019 EXAM: Two-dimensional and M-mode echocardiogram with Doppler, color Doppler with bubble study. Other Information Quality : GoodRhythm : NSR INDICATION CVA/TIA Echo Enhancing Agent Indication: Rule Out Septal Defect Agent/Amount Used: Agitated Saline 2D DIMENSIONS IVSd1.50 (0.7-1.1cm)LVDd5.46 (3.9-5.9cm) LVOT Diameter2.49 (1.8-2.4cm)PWd1.41 (0.7-1.1cm) IVSs1.73 (0.8-1.2cm)LVDs3.27 (2.5-4.0cm) FS (%) 40.2 %PWs1.89 (0.8-1.2cm) M-Mode DIMENSIONS Left Atrium (MM)4.60 (2.5-4.0cm)IVSd1.09 (0.7-1.1cm) Aortic Root3.94 (2.2-3.7cm)LVDd5.76 (4.0-5.6cm) Aortic Cusp Exc.2.65 (1.5-2.0cm)PWd1.69 (0.7-1.1cm) IVSs1.82 cmFS (%) 35 % LVDs3.74 (2.0-3.8cm)PWs1.69 cm Aortic Valve AoV Peak Ymxobfph073.9cm/sAoV VTI19.0cmAO Peak GR.5mmHg LVOT Peak Bfdesryh69.4cm/sLVOT VTI17.62cmAO Mean GR.3mmHg CHRIS (VMAX)1.17mv3SPS (VTI)1.62cm2 Mitral Valve MV E Yrxsdvoi86.5cm/sMV DECEL [id number] A Enekewxf28.5cm/s MV ZGY14aiN/A ratio0.8MVA (PHT)2.39cm2 TDI Lateral E' Peak V12.47cm/sMedial E' Peak V8.15cm/sE/Lateral E'3.7 E/Medial E'5.7 LEFT VENTRICLE The left ventricle is normal size. There is mild concentric left ventricular hypertrophy. The left ventricular systolic function is normal. The estimated ejection fraction is 60-65% No regional wall motion abnormalities noted.. Transmitral Doppler flow pattern is Grade I-abnormal relaxation pattern. No left ventricle thrombus noted on this study. There is no ventricular septal defect visualized. There is no left ventricular aneurysm. There is no mass noted in the left ventricle. RIGHT VENTRICLE The right ventricle is normal size. There is normal right ventricular wall thickness. The right ventricular systolic function is normal. ATRIA The left atrium is mildly dilated. The right atrium size is normal. The interatrial septum is intact with no evidence for an atrial septal defect. AORTIC VALVE The aortic valve is normal in structure. No aortic regurgitation is present. There is no aortic valvular stenosis. There is no aortic valvular vegetation. MITRAL VALVE The mitral valve is normal in structure. There is no evidence of mitral valve prolapse. There is no mitral valve stenosis. There is no mitral valve regurgitation noted. TRICUSPID VALVE The tricuspid valve is normal in structure. There is trace tricuspid valve regurgitation noted. RVSP is calculated at 20 mm Hg. There is no tricuspid valve prolapse or vegetation. There is no tricuspid valve stenosis. PULMONIC VALVE The pulmonary valve is normal in structure. There is no pulmonic valvular regurgitation. There is no pulmonic valvular stenosis. GREAT VESSELS The aortic root is normal in size. The ascending aorta is normal in size. The pulmonary artery is normal. The IVC is normal in size and collapses >50% with inspiration. PERICARDIAL EFFUSION There is no pericardial effusion. There is no pleural effusion. <Conclusion> There is mild concentric left ventricular hypertrophy. The estimated ejection fraction is 60-65% Transmitral Doppler flow pattern is Grade I-abnormal relaxation pattern. The left atrium is mildly dilated. The interatrial septum is intact with no evidence for an atrial septal defect. There is trace tricuspid valve regurgitation noted. RVSP is calculated at 20 mm Hg.
[2019-02-23 20:10] VITALS: BP 122/73; PULSE 70; RESP 18; TEMP 98.3
--- NOTE | 2019-02-25 00:55 | CP.PCM.DIS ---
Provider - Provider Date of Admission: 02/19/19 07:19 Attending physician: Diogenes Sharpe MD Consults: 02/19/19 06:25 Stroke Team Consult Stat Comment: Consulting Provider: Neurohospitalist Consulting Physician: NEUROHOSP Neurohospitalist for Consult: Solis Meza Neurohospitalist for Consult: Michael Leal Reason for Consult: r sided weakness Time Spent in preparation of Discharge (in minutes): 30 Diagnosis - Discharge Diagnosis (1) Acute CVA (cerebrovascular accident) Status: Acute Priority: High (2) Right hemiplegia Status: Acute Priority: High (3) Diabetes mellitus Status: Acute Priority: Medium (4) Hypertension Status: Acute Priority: Medium (5) Slurred speech Status: Acute Hospital Course - Lab Results Lab Results: Micro Results 02/20/19 18:25 Naris MRSA Culture (Admit) - Final MRSA NOT DETECTED 02/19/19 13:50 Nose MRSA Culture (Admit) - Final MRSA NOT DETECTED Most Recent Lab Values WBC 5.2 K/uL (4.8-10.8) 02/20/19 04:15 RBC 4.31 Mil/uL (4.40-5.90) L 02/20/19 04:15 Hgb 13.6 g/dL (12.0-18.0) 02/20/19 04:15 Hct 39.6 % (35.0-51.0) 02/20/19 04:15 MCV 91.9 fl (80.0-94.0) 02/20/19 04:15 MCH 31.4 pg (27.0-31.0) H 02/20/19 04:15 MCHC 34.2 g/dL (33.0-37.0) 02/20/19 04:15 RDW 12.5 % (11.5-14.5) 02/20/19 04:15 Plt Count 204 K/uL (130-400) 02/20/19 04:15 MPV 8.5 fl (7.2-11.7) 02/19/19 06:41 Neut % (Auto) 68.2 % (50.0-75.0) 02/19/19 06:41 Lymph % (Auto) 15.5 % (20.0-40.0) L 02/19/19 06:41 [place] % (Auto) 11.5 % (0.0-10.0) H 02/19/19 06:41 Eos % (Auto) 3.9 % (0.0-4.0) 02/19/19 06:41 Baso % (Auto) 0.9 % (0.0-2.0) 02/19/19 06:41 Neut # (Auto) 3.3 K/uL (1.8-7.0) 02/19/19 06:41 Lymph # (Auto) 0.7 K/uL (1.0-4.3) L 02/19/19 06:41 [place] # (Auto) 0.6 K/uL (0.0-0.8) 02/19/19 06:41 Eos # (Auto) 0.2 K/uL (0.0-0.7) 02/19/19 06:41 Baso # (Auto) 0.0 K/uL (0.0-0.2) 02/19/19 06:41 PT 10.2 Seconds (9.8-13.1) 02/19/19 06:41 INR 0.9 02/19/19 06:41 APTT 31.0 Seconds (25.6-37.1) 02/20/19 04:15 pO2 54 mm/Hg (30-55) 02/19/19 08:22 VBG pH 7.40 (7.32-7.43) 02/19/19 08:22 VBG pCO2 42 mmHg (40-60) 02/19/19 08:22 VBG HCO3 25.4 mmol/L 02/19/19 08:22 VBG Total CO2 27.3 mmol/L (22-28) 02/19/19 08:22 VBG O2 Sat (Calc) 91.4 % (40-65) H 02/19/19 08:22 VBG Base Excess 1.0 mmol/L (0.0-2.0) 02/19/19 08:22 VBG Potassium 4.1 mmol/L (3.6-5.2) 02/19/19 08:22 Sodium 133.0 mmol/L (132-148) 02/19/19 08:22 Chloride 98.0 mmol/L (98-107) 02/19/19 08:22 Glucose 404 mg/dL (75-110) H* 02/19/19 08:22 Lactate 2.7 mmol/L (0.7-2.1) H 02/19/19 08:22 FiO2 21.0 % 02/19/19 08:22 Crit Value Called To Dorinda hansen 02/19/19 08:22 Crit Value Called By 23 02/19/19 08:22 Crit Value Read Back Y 02/19/19 08:22 Blood Gas Notified Time 823 02/19/19 08:22 Sodium 135 mmol/l (132-148) 02/20/19 04:15 Potassium 3.6 MMOL/L (3.6-5.0) 02/20/19 04:15 Chloride 100 mmol/L (98-107) 02/20/19 04:15 Carbon Dioxide 28 mmol/L (22-30) 02/20/19 04:15 Anion Gap 11 (10-20) 02/20/19 04:15 BUN 12 mg/dl (9-20) 02/20/19 04:15 Creatinine 0.6 mg/dl (0.8-1.5) L 02/20/19 04:15 Est GFR ( Amer) > 60 02/20/19 04:15 Est GFR (Non-Af Amer) > 60 02/20/19 04:15 POC Glucose (mg/dL) 212 mg/dL (65-110) H 02/23/19 15:52 Random Glucose 227 mg/dL (75-110) H 02/20/19 04:15 Hemoglobin A1c 11.5 % (4.2-6.5) H 02/19/19 06:41 Calcium 9.0 mg/dL (8.4-10.2) 02/20/19 04:15 Total Bilirubin 1.1 mg/dl (0.2-1.3) 02/20/19 04:15 AST 21 U/L (17-59) 02/20/19 04:15 ALT 36 U/L (21-72) 02/20/19 04:15 Alkaline Phosphatase 53 U/L (38-126) 02/20/19 04:15 Troponin I < 0.0120 ng/mL (0.00-0.120) 02/19/19 06:41 Total Protein 6.3 G/DL (6.3-8.2) 02/20/19 04:15 Albumin 3.9 g/dL (3.5-5.0) 02/20/19 04:15 Globulin 2.5 gm/dL (2.2-3.9) 02/20/19 04:15 Albumin/Globulin Ratio 1.6 (1.0-2.1) 02/20/19 04:15 Triglycerides 305 mg/DL (0-149) H 02/19/19 06:41 Cholesterol 231 mg/dL (0-199) H 02/19/19 06:41 LDL Cholesterol Direct 149 mg/dL (0-129) H 02/19/19 06:41 HDL Cholesterol 45 MG/DL (30-70) 02/19/19 06:41 Venous Blood Potassium 4.1 mmol/L (3.6-5.2) 02/19/19 08:22 Urine Opiates Screen Negative (NEGATIVE) 02/19/19 07:15 Urine Methadone Screen Negative (NEGATIVE) 02/19/19 07:15 Ur Barbiturates Screen Negative (NEGATIVE) 02/19/19 07:15 Ur Phencyclidine Scrn Negative (NEGATIVE) 02/19/19 07:15 Ur Amphetamines Screen Negative (NEGATIVE) 02/19/19 07:15 U Benzodiazepines Scrn Negative (NEGATIVE) 02/19/19 07:15 U Oth Cocaine Metabols Negative (NEGATIVE) 02/19/19 07:15 U Cannabinoids Screen Negative (NEGATIVE) 02/19/19 07:15 Alcohol, Quantitative < 10 mg/dl (0-10) 02/19/19 06:41 Blood Type O NEGATIVE 02/19/19 06:42 Antibody Screen Negative 02/19/19 06:42 BBK History Checked No verified bt 02/19/19 06:42 Discharge Exam - Head Exam Head Exam: ATRAUMATIC, NORMAL INSPECTION, NORMOCEPHALIC Discharge Plan - Follow Up Plan Condition: SERIOUS Disposition: REHAB FACILITY/REHAB UNIT
== END 2019-02-23 20:17 | DRG 65 ==
LOC: H.ER 06:18 → H.ERHOLD 07:19 → H.ICU/CCU 11:48 → H.TEL 02-20 18:07
PROVIDERS: ADMIT Internal Medicine; ATTEND Internal Medicine
PROC: 3E0234Z Introduction of Serum, Toxoid and Vaccine into Muscle, Percutaneous Approach (ICD-10-PCS; principal; 2019-02-20)
DX: I63.40 Cerebral infarction due to embolism of unspecified cerebral artery (principal); G81.91 Hemiplegia, unspecified affecting right dominant side; E11.65 Type 2 diabetes mellitus with hyperglycemia; R47.01 Aphasia; I10 Essential (primary) hypertension; R29.810 Facial weakness; Z91.14 Patient's other noncompliance with medication regimen; R29.704 NIHSS score 4; J32.2 Chronic ethmoidal sinusitis; Z23 Encounter for immunization

== ENCOUNTER 2019-02-23 18:20 | Inpatient (IN) | payer OTHER ==
[2019-02-23] MEDS: Insulin Lispro (humaLOG) 100 Units/ml Inj SC SCH (22:38)
[2019-02-24] MEDS: Insulin Lispro (humaLOG) 100 Units/ml Inj SC SCH ×2 (09:00→12:17)
--- NOTE | 2019-02-24 13:22 | PCM.PSYTMC ---
Acute Rehab Team Conference - - Vital Signs: Vital Signs (Last 8 Hours): Vital Signs 02/24/19 02/24/19 08:26 12:06 Temperature 97.7 F 97.7 F Pulse Rate 76 76 Respiratory 20 20 Rate Blood Pressure 116/67 116/67 O2 Sat by Pulse 100 Oximetry Pain: 0 - Precautions: Precautions: Fall Prevention, Aspiration - Medications/Other Issues: Comment: Hx of Cardiac Ablation at DC Presb/Hypertension/Diabetes. Self Reporting that he was non compliant with medications and FU due to insurance issues - Toileting: Toileting: Maximal Assistance - Bladder Management: Bladder Pattern: Normal Voiding Method: Bedside Commode, Urinal Bladder Management: Maximal Assistance Other Intervention:: no episodes of incontinence - Transfers: Transfers: Moderate Assistance - ADL's: ADL's: Maximal Assistance - Pain Management: Other Intervention:: No c/o of pain reassess every 8 hours and prn - Patient/Family Teaching: Other Intervention:: Rehab Protocol. Safety Precautions. Medication Management /Education. Stroke Education on Lifestyle changes - Goals/Time Frame: Comment: as per POC - Provider: Registered Nurse:: Oanh Ramirez Nutrition - Current Diet Current Diet/Supplement/Feedings: Moderate consistent CHO heart healthy advanced bite size nectar thick liquids - Appetite Percent Meal Consumed: 75-100% - Assessment/Goals/Time Frame Assessments/Goals/Time Frame: Pt at high nutritional risk. goals: 1. Pt to consume 75-100% of meals. 2. Blood glucoses to be between 70-180 mg/dl(FCI goal:HgbA1C to trend downward over next few months). Follow-up due on 03/01/2019 - Provider Provider: Katelyn Miller Case Management - Psychosocial Assessment Support Systems: Jared Webb ([facility]) - [phone] Psychological Interventions/Needs: Patient is AAOx3 and able to verbalize needs. Discharge Concerns: Patient lives alone and has three flights of stairs to navigate. Patient/Family Meeting: CM met with patient and rehab team. Intervention/Goal/Outcome: 1. Goal: Intermittent supervision 2. Plan: home with VNS pending progress - Re-team for most appropriate discharge planning needs 3. DME needs 4. f/u appts 5. continued acute rehab auth 6. emotional support - Discharge Plan Discharge Plan: Home with services - Provider Provider: Maegan Solo License Number: [id number] Rehabilitation Plan - Treatment Plan Treatment Plan: Physical Therapy, Occupational Therapy, Speech, Dietary, Patient/Family Education - Discharge Plan Discharge to: Subacute
--- NOTE | 2019-02-24 13:58 | PCM.OPOC ---
Physiatry Overall Plan of Care - Overall Plan of Care Estimated Length of Stay in Weeks: 3 Rehab Impairment: Mobility, Gait, Speech, Balance, Coordination Etiologic Diagnosis: Cerebrovascular Accident Rehab/Medical Prognosis: Fair - Anticipated Interventions Physical Therapy:: Yes Number of Hours: 1.5 Number of times per week: 6 Number of Week(s) Duration: 3 Occupational Therapy:: Yes Number of Hours: 1.5 Number of times per week: 6 Number of Week(s) Duration: 3 Speech Therapy:: Yes Number of Hours: 0.5 Number of times per week: 5 Number of Week(s) Duration: 3 Recreational Therapy:: Yes Number of Hours: 0.5 Number of times per week: 5 Number of Week(s) Duration: 3 - Therapy Goals Bed Mobility: Supervision Ambulation: Supervision Functional Positional Changes:: Supervision - Functional Status Prior to Admission: Independent Current Status: Assist with ADLs and ambulation - Functional Outcomes Functional Outcomes: to be determined - Discharge Plan Identification of Barriers to Discharge: Home Situation Discharge Destination: Home
--- NOTE | 2019-02-24 14:00 | PCM.CPAPS ---
History of Present Illness - History of Present Illness History of Present Illness: Dr Mendes PMR consultation on Arsenio Webb, born 1965 who has been admitted to [facility] for NELIDA following an admission to [facility] after an acute left MCA distribution infarct. Arsenio is right HD. Went to be around 1am and woke up at 4 and go to hosp. around 6 and it was determined to be too late for tPA. Review of Systems - Constitutional Constitutional: absent: Anorexia, Chills - EENT Eyes: absent: Blurred Vision Ears: absent: Ear Discharge, Ear Pain - Cardiovascular Cardiovascular: absent: Chest Pain - Respiratory Respiratory: absent: Dyspnea - Gastrointestinal Gastrointestinal: absent: Abdominal Pain - Musculoskeletal Musculoskeletal: Abnormal Gait. absent: Back Pain - Integumentary Integumentary: absent: Bleeding Lesions, Non-Healing Lesions, Jaundice - Neurological Neurological: absent: Abnormal Movements, Dizziness Past Patient History - Past Medical History & Family History Past Medical History?: Yes - Past Social History Smoking Status: Never Smoked Alcohol: Social Drugs: Denies Home Situation {Lives}: Alone - CARDIAC Hx Cardiac Disorders: Yes Hx Atrial Fibrillation: No - PULMONARY Hx Respiratory Disorders: No - NEUROLOGICAL Hx Neurological Disorder: Yes HX Cerebrovascular Accident: Yes - HEENT Hx HEENT Problems: No Other/Comment: wear glasses - RENAL Hx Chronic Kidney Disease: No - ENDOCRINE/METABOLIC Hx Endocrine Disorders: Yes Hx Diabetes Mellitus Type 2: Yes - HEMATOLOGICAL/ONCOLOGICAL Hx Blood Disorders: No Hx AIDS: No Hx Human Immunodeficiency Virus (HIV): No - INTEGUMENTARY Hx Dermatological Problems: Yes - MUSCULOSKELETAL/RHEUMATOLOGICAL Hx Falls: Yes - GASTROINTESTINAL Hx Gastrointestinal Disorders: No - GENITOURINARY/GYNECOLOGICAL Hx Genitourinary Disorders: No - PSYCHIATRIC Hx Substance Use: No - SURGICAL HISTORY Hx Surgeries: Yes Other/Comment: Ablation therapy - ANESTHESIA Hx Anesthesia: Yes Hx Anesthesia Reactions: No Meds Allergies/Adverse Reactions: Allergies Allergy/AdvReac Type Severity Reaction Status Date / Time No Known Allergies Allergy Verified 02/19/19 06:27 - Medications Medications: Current Medications Aspirin (Aspirin) 325 mg PO DAILY [facility] Last Admin: 02/24/19 09:07 Dose: 325 mg Atorvastatin Calcium (Lipitor) 40 mg PO DAILY [facility] Last Admin: 02/24/19 08:59 Dose: 40 mg Clopidogrel Bisulfate (Plavix) 75 mg PO DAILY [facility] Last Admin: 02/24/19 09:07 Dose: 75 mg Insulin Human Lispro (Humalog) 0 units SC ACHS [facility]; Protocol Last Admin: 02/24/19 12:17 Dose: 4 units Metformin HCl (Glucophage) 1,000 mg PO BIDWM [facility] Last Admin: 02/24/19 08:59 Dose: 1,000 mg Physical Exam - Constitutional Appears: Non-toxic - Head Exam Head Exam: ATRAUMATIC, NORMAL INSPECTION, NORMOCEPHALIC - Eye Exam Eye Exam: EOMI - ENT Exam ENT Exam: Mucous Membranes Moist - Respiratory Exam Respiratory Exam: Decreased Breath Sounds, NORMAL BREATHING PATTERN. absent: Rales, Rhonchi, Wheezes - Cardiovascular Exam Cardiovascular Exam: REGULAR RHYTHM - GI/Abdominal Exam GI & Abdominal Exam: absent: Distended, Guarding - Extremities Exam Extremities exam: Negative for: calf tenderness - Neurological Exam Neurological exam: Alert, CN II-XII Intact, Oriented x3 - Psychiatric Exam Psychiatric exam: Normal Affect, Normal Mood - Skin Skin Exam: Warm Results - Vital Signs Recent Vital Signs: Last Vital Signs Temp 97.7 F 02/24/19 12:06 Pulse 76 02/24/19 12:06 Resp 20 02/24/19 12:06 BP 116/67 02/24/19 12:06 Pulse Ox 100 02/24/19 08:26 - Labs Labs: Laboratory Results - last 24 hr 02/23/19 02/24/19 02/24/19 21:13 05:53 11:16 POC Glucose (mg/dL) 200 H 207 H 281 H Assessment & Plan - Assessment and Plan (Free Text) Assessment: 53 year old right hand dominant male with left MCA dist CVA and right UE>LE paresis PT/OT to continue to help increase functional independence Team conference for d/c planning Pain: controlled Vascular: no evidence of DVT GI: No evidence of constipation or diarrhea Patient is an excellent acute rehabilitation candidate and will have focused pain management, wound care, PT, OT and recreational therapy to help facilitate a safe and appropriate d/c plan right UE with 2/5 proximal and 0/5 distal strength right LE 4/5 - Functional Status Prior to Admission: Independent Current Status: Needs assist for ADLs and ambulation Impairment Code: 01.2
[2019-02-24] MEDS: Insulin Regular 100 units/ml SC SCH ×2 (16:49→21:42)
--- NOTE | 2019-02-25 00:47 | CP.PCM.HP ---
Past Patient History - Past Medical History & Family History Past Medical History?: Yes - Past Social History Smoking Status: Never Smoked Alcohol: Social Drugs: Denies Home Situation {Lives}: Alone - CARDIAC Hx Hypertension: Yes - PULMONARY Hx Respiratory Disorders: No - NEUROLOGICAL Hx Neurological Disorder: Yes HX Cerebrovascular Accident: Yes - HEENT Hx HEENT Problems: No Other/Comment: wear glasses - RENAL Hx Chronic Kidney Disease: No - ENDOCRINE/METABOLIC Hx Diabetes Mellitus Type 2: Yes - HEMATOLOGICAL/ONCOLOGICAL Hx Blood Disorders: No Hx AIDS: No Hx Human Immunodeficiency Virus (HIV): No - INTEGUMENTARY Hx Dermatological Problems: Yes - MUSCULOSKELETAL/RHEUMATOLOGICAL Hx Falls: Yes - GASTROINTESTINAL Hx Gastrointestinal Disorders: No - GENITOURINARY/GYNECOLOGICAL Hx Genitourinary Disorders: No - PSYCHIATRIC Hx Substance Use: No - SURGICAL HISTORY Hx Surgeries: Yes Other/Comment: Ablation therapy - ANESTHESIA Hx Anesthesia: Yes Hx Anesthesia Reactions: No Meds Allergies/Adverse Reactions: Allergies Allergy/AdvReac Type Severity Reaction Status Date / Time No Known Allergies Allergy Verified 02/19/19 06:27 Results - Vital Signs Recent Vital Signs: Last Vital Signs Temp 98.1 F 02/24/19 20:27 Pulse 76 02/24/19 20:27 Resp 20 02/24/19 20:27 BP 139/74 02/24/19 20:27 Pulse Ox 98 02/24/19 20:27 - Labs Labs: Laboratory Results - last 24 hr 02/24/19 02/24/19 02/24/19 05:53 11:16 16:18 POC Glucose (mg/dL) 207 H 281 H 176 H
[2019-02-25] MEDS: Insulin Regular 100 units/ml SC SCH ×4 (08:50→21:09)
[2019-02-26] MEDS: Insulin Regular 100 units/ml SC SCH ×4 (06:58→21:15)
--- NOTE | 2019-02-26 17:54 | CP.PCM.PN ---
Subjective - Date & Time of Evaluation Date of Evaluation: 02/26/19 Time of Evaluation: 17:52 - Subjective Subjective: Patient is a 53 year old male with left MCA distribution infarct He has improved speech just from yesterday but still with facial droop getting some right elbow flexion that is 1+/5 nothing distal and no elbow ext. Objective - Vital Signs/Intake and Output Vital Signs (last 24 hours): Temp Pulse Resp BP Pulse Ox 98.9 F 84 18 146/76 98 02/26/19 08:54 02/26/19 10:30 02/26/19 08:54 02/26/19 08:54 02/26/19 10:30 - Medications Medications: Current Medications Aspirin (Aspirin) 325 mg PO DAILY [facility] Last Admin: 02/26/19 08:45 Dose: 325 mg Atorvastatin Calcium (Lipitor) 40 mg PO DAILY [facility] Last Admin: 02/26/19 08:45 Dose: 40 mg Clopidogrel Bisulfate (Plavix) 75 mg PO DAILY [facility] Last Admin: 02/26/19 08:45 Dose: 75 mg Insulin Human Regular (Humulin R) 0 units SC [facility]; Protocol Last Admin: 02/26/19 16:42 Dose: Not Given Lactulose (Enulose) 20 gm PO BID PRN PRN Reason: Constipation Last Admin: 02/25/19 19:13 Dose: 20 gm Metformin HCl (Glucophage) 1,000 mg PO BIDWM [facility] Last Admin: 02/26/19 16:43 Dose: 1,000 mg - Constitutional Appears: Non-toxic, No Acute Distress - Head Exam Head Exam: ATRAUMATIC, NORMAL INSPECTION - Eye Exam Eye Exam: EOMI - ENT Exam ENT Exam: Mucous Membranes Moist - Respiratory Exam Respiratory Exam: NORMAL BREATHING PATTERN - Cardiovascular Exam Cardiovascular Exam: REGULAR RHYTHM - GI/Abdominal Exam GI & Abdominal Exam: Normal Bowel Sounds. absent: Guarding - Extremities Exam Extremities Exam: absent: Calf Tenderness - Neurological Exam Neurological Exam: Alert, Awake, Oriented x3 Neuro motor strength exam: Left Upper Extremity: 5, Right Upper Extremity: 2/1, Left Lower Extremity: 5, Right Lower Extremity: 3 - Psychiatric Exam Psychiatric exam: Normal Affect, Normal Mood - Skin Skin Exam: Warm Assessment and Plan - Assessment and Plan (Free Text) Assessment: PT/OT to continue to help increase functional independence Team conference for d/c planning Pain: controlled Vascular: no evidence of DVT GI: No evidence of constipation or diarrhea Patient continues to be an excellent acute rehabilitation candidate and will have continued focused speech, PT, OT and recreational therapy to help facilitate a safe and appropriate d/c plan
[2019-02-27] MEDS: Insulin Regular 100 units/ml SC SCH ×4 (06:55→21:19)
--- NOTE | 2019-02-27 11:26 | CP.PCM.CON ---
History of Present Illness - History of Present Illness History of Present Illness: Pt is a 53 year old male admitted to [facility] and referred to the service writer advisor for evaluation. Med history postive for CVA, past ablasion. See medical record for compete medical history and medication list. Social Hisotry: pt lives alone and never , 0 children. Pt has one brother in [place]. Pt reported positive relationship with him. Ed.voc: pt raised in the [place], college graduate. 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 Pt reported use of alcohol 3-4 drinks 3x-4X weekly. Pt denied drug abuse. Pt negative for a psych history. Pt spoke of medical noncompliance over the last number of years. MSE: Pt alert, oriented relevant/coherent, no psychosis, affect labile, pt spoke of desire for recovery, remaining optimistic and forward thinking. Pt denied depression, useing cogntiive strategies for coping. No si no hi ideation. Dx: Alcohol Abuse/maladaptive drinking Adjustment Dx plan: Continued Sup therapy to address adjustment issues regarding his CVA. Past Patient History - Past Medical History & Family History Past Medical History?: Yes - Past Social History Smoking Status: Never Smoked Alcohol: Social Drugs: Denies Home Situation {Lives}: Alone - CARDIAC Hx Hypertension: Yes - PULMONARY Hx Respiratory Disorders: No - NEUROLOGICAL Hx Neurological Disorder: Yes HX Cerebrovascular Accident: Yes - HEENT Hx HEENT Problems: No Other/Comment: wear glasses - RENAL Hx Chronic Kidney Disease: No - ENDOCRINE/METABOLIC Hx Diabetes Mellitus Type 2: Yes - HEMATOLOGICAL/ONCOLOGICAL Hx Blood Disorders: No Hx AIDS: No Hx Human Immunodeficiency Virus (HIV): No - INTEGUMENTARY Hx Dermatological Problems: Yes - MUSCULOSKELETAL/RHEUMATOLOGICAL Hx Falls: Yes - GASTROINTESTINAL Hx Gastrointestinal Disorders: No - GENITOURINARY/GYNECOLOGICAL Hx Genitourinary Disorders: No - PSYCHIATRIC Hx Substance Use: No - SURGICAL HISTORY Hx Surgeries: Yes Other/Comment: Ablation therapy - ANESTHESIA Hx Anesthesia: Yes Hx Anesthesia Reactions: No Meds Allergies/Adverse Reactions: Allergies Allergy/AdvReac Type Severity Reaction Status Date / Time No Known Allergies Allergy Verified 02/19/19 06:27 - Medications Medications: Current Medications Aspirin (Aspirin) 325 mg PO DAILY [facility] Last Admin: 02/26/19 08:45 Dose: 325 mg Atorvastatin Calcium (Lipitor) 40 mg PO DAILY [facility] Last Admin: 02/27/19 09:27 Dose: 40 mg Clopidogrel Bisulfate (Plavix) 75 mg PO DAILY [facility] Last Admin: 02/27/19 09:27 Dose: 75 mg Insulin Human Regular (Humulin R) 0 units SC ACHS [facility]; Protocol Last Admin: 02/27/19 06:55 Dose: 3 units Lactulose (Enulose) 20 gm PO BID PRN PRN Reason: Constipation Last Admin: 02/25/19 19:13 Dose: 20 gm Metformin [facility] (Glucophage) [facility] Last Admin: 02/27/19 09:26 Dose: 1,000 mg Results - Vital Signs Recent Vital Signs: Last Vital Signs Temp 97.9 F 02/27/19 07:34 Pulse 69 02/27/19 07:34 Resp 20 02/27/19 07:34 BP 136/82 02/27/19 07:34 Pulse Ox 97 02/27/19 07:34 - Labs Labs: Laboratory Results - last 24 hr 02/26/19 02/26/19 02/26/19 11:43 16:02 21:15 POC Glucose (mg/dL) 259 H 148 H 200 H 02/27/19 02/27/19 06:54 11:09 POC Glucose (mg/dL) 216 H 292 H
--- NOTE | 2019-02-27 16:14 | CP.PCM.PN ---
Subjective - Date & Time of Evaluation Date of Evaluation: 02/27/19 Time of Evaluation: 16:12 - Subjective Subjective: left CVA with right HP making great gains Objective - Vital Signs/Intake and Output Vital Signs (last 24 hours): Temp Pulse Resp BP Pulse Ox 97.9 F 69 20 136/82 97 02/27/19 07:34 02/27/19 07:34 02/27/19 07:34 02/27/19 07:34 02/27/19 07:34 - Medications Medications: Current Medications Aspirin (Aspirin) 325 mg PO DAILY [facility] Last Admin: 02/27/19 09:00 Dose: 325 mg Atorvastatin Calcium (Lipitor) 40 mg PO DAILY [facility] Last Admin: 02/27/19 09:27 Dose: 40 mg Clopidogrel Bisulfate (Plavix) 75 mg PO DAILY [facility] Last Admin: 02/27/19 09:27 Dose: 75 mg Insulin Human Regular (Humulin R) 0 units SC ACHS [facility]; Protocol Last Admin: 02/27/19 12:00 Dose: 4 units Lactulose (Enulose) 20 gm PO BID PRN PRN Reason: Constipation Last Admin: 02/25/19 19:13 Dose: 20 gm Metformin HCl (Glucophage) 1,000 mg PO BIDWM [facility] Last Admin: 02/27/19 09:26 Dose: 1,000 mg - Constitutional Appears: Non-toxic, No Acute Distress - Head Exam Head Exam: ATRAUMATIC - Eye Exam Eye Exam: EOMI - ENT Exam ENT Exam: Mucous Membranes Moist - Respiratory Exam Respiratory Exam: NORMAL BREATHING PATTERN. absent: Accessory Muscle Use - Cardiovascular Exam Cardiovascular Exam: REGULAR RHYTHM - GI/Abdominal Exam GI & Abdominal Exam: absent: Distended, Guarding - Neurological Exam Neurological Exam: Alert. absent: Normal Gait - Psychiatric Exam Psychiatric exam: Normal Affect, Normal Mood Assessment and Plan - Assessment and Plan (Free Text) Assessment: PT/OT to continue to help increase functional independence Team conference for d/c planning Pain: controlled Vascular: no evidence of DVT GI: No evidence of constipation or diarrhea Patient continues to be an excellent acute rehabilitation candidate and will have continued focused speech, PT, OT and recreational therapy to help facilit ate a safe and appropriate d/c plan He was walking with a step to gait pattern and I helped him get comfortable and use a step through pattern which did very well using a quad cane facial droop but no significant dysarthria
[2019-02-28] MEDS: Insulin Regular 100 units/ml SC SCH ×4 (07:34→21:23)
--- NOTE | 2019-02-28 11:36 | CP.PCM.PN ---
Subjective - Date & Time of Evaluation Date of Evaluation: 02/28/19 Time of Evaluation: 09:05 - Subjective Subjective: no acute complaints at present Objective - Vital Signs/Intake and Output Vital Signs (last 24 hours): Temp Pulse Resp BP Pulse Ox 97.9 F 69 19 135/86 96 02/28/19 08:12 02/28/19 08:12 02/28/19 08:12 02/28/19 08:12 02/28/19 08:12 - Medications Medications: Current Medications Aspirin (Aspirin) 325 mg PO DAILY [facility] Last Admin: 02/28/19 08:33 Dose: 325 mg Atorvastatin Calcium (Lipitor) 40 mg PO DAILY [facility] Last Admin: 02/28/19 08:30 Dose: 40 mg Clopidogrel Bisulfate (Plavix) 75 mg PO DAILY [facility] Last Admin: 02/28/19 08:33 Dose: 75 mg Insulin Human Regular (Humulin R) 0 units SC ACHS [facility]; Protocol Last Admin: 02/28/19 07:34 Dose: 3 units Lactulose (Enulose) 20 gm PO BID PRN PRN Reason: Constipation Last Admin: 02/25/19 19:13 Dose: 20 gm Metformin HCl (Glucophage) 1,000 mg PO BIDWM [facility] Last Admin: 02/28/19 08:29 Dose: 1,000 mg - Constitutional Appears: Well - Head Exam Head Exam: ATRAUMATIC, NORMAL INSPECTION, NORMOCEPHALIC - Eye Exam Eye Exam: EOMI, Normal appearance, PERRL Pupil Exam: NORMAL ACCOMODATION, PERRL - ENT Exam ENT Exam: Mucous Membranes Moist, Normal Exam - Neck Exam Neck Exam: Full ROM - Respiratory Exam Respiratory Exam: Clear to Ausculation Bilateral, NORMAL BREATHING PATTERN - Cardiovascular Exam Cardiovascular Exam: REGULAR RHYTHM - GI/Abdominal Exam GI & Abdominal Exam: Soft, Normal Bowel Sounds - Rectal Exam Rectal Exam: NORMAL INSPECTION - Exam External exam: NORMAL EXTERNAL EXAM - Extremities Exam Extremities Exam: Full ROM, Normal Capillary Refill, Normal Inspection - Back Exam Back Exam: NORMAL INSPECTION - Neurological Exam Neurological Exam: Alert - Psychiatric Exam Psychiatric exam: Normal Affect - Skin Skin Exam: Normal Color Assessment and Plan (1) Acute CVA (cerebrovascular accident) Assessment & Plan: covering for Dr Mendes, plan for physical, occupational, rec therapy, monitor skin and vitals Status: Acute (2) CVA (cerebral vascular accident) Status: Acute (3) Diabetes mellitus Status: Acute (4) Hypertension Status: Acute (5) Right hemiplegia Status: Acute (6) Slurred speech Status: Acute
[2019-03-01] MEDS: Insulin Regular 100 units/ml SC SCH ×4 (08:00→21:08)
[2019-03-02] MEDS: Insulin Regular 100 units/ml SC SCH ×4 (07:07→21:41)
--- NOTE | 2019-03-02 17:31 | CP.PCM.PN ---
Subjective - Date & Time of Evaluation Date of Evaluation: 03/02/19 Time of Evaluation: 17:29 - Subjective Subjective: Arsenio Webb, born 1965 who has been admitted to [facility] for NELIDA following an admission to [facility] after an acute left MCA distribution infarct. Arsenio is right HD. Went to be around 1am and woke up at 4 and go to hosp. around 6 and it was determined to be too late for tPA. There is an issue with the insurance and we have spoken at length with the carrier. I have spoken with the head of nursing and with staff as well. It would be in Arsenio's best interest not to have to change facilities and lose time from therapies to get re-oriented with a new facility and begin intake all over again. He is on the phone now with the insurance company. Also this will make a larger burden for family and friends to visit Arsenio Objective - Vital Signs/Intake and Output Vital Signs (last 24 hours): Temp Pulse Resp BP Pulse Ox 96.6 F L 68 20 130/78 97 03/02/19 07:33 03/02/19 07:33 03/02/19 07:33 03/02/19 07:33 03/02/19 07:33 - Medications Medications: Current Medications Aspirin (Aspirin) 325 mg PO DAILY [facility] Last Admin: 03/02/19 08:41 Dose: 325 mg Atorvastatin Calcium (Lipitor) 40 mg PO DAILY [facility] Last Admin: 03/02/19 08:38 Dose: 40 mg Clopidogrel Bisulfate (Plavix) 75 mg PO DAILY [facility] Last Admin: 03/02/19 08:41 Dose: 75 mg Insulin Human Regular (Humulin R) 0 units SC [facility]; Protocol Last Admin: 03/02/19 12:14 Dose: 3 units Lactulose (Enulose) 20 gm PO BID PRN PRN Reason: Constipation Last Admin: 02/25/19 19:13 Dose: 20 gm Metformin HCl (Glucophage) 1,000 mg PO BIDWM [facility] Last Admin: 03/02/19 08:38 Dose: 1,000 mg - Constitutional Appears: Non-toxic - Eye Exam Eye Exam: EOMI - ENT Exam ENT Exam: Mucous Membranes Moist - Respiratory Exam Respiratory Exam: absent: Respiratory Distress Assessment and Plan - Assessment and Plan (Free Text) Assessment: PT/OT to continue to help increase functional independence Team conference for d/c planning Pain: controlled Vascular: no evidence of DVT GI: No evidence of constipation or diarrhea Patient continues to be an excellent acute rehabilitation candidate and will have continued focused speech, PT, OT and recreational therapy to help facilitate a safe and appropriate d/c plan
[2019-03-03] MEDS: Insulin Regular 100 units/ml SC SCH ×4 (08:34→21:00)
[2019-03-04] MEDS: Insulin Regular 100 units/ml SC SCH ×2 (06:55→11:59)
[2019-03-04 07:53] VITALS: BP 137/74; PULSE 62; RESP 19; TEMP 97.5; O2SAT 97
[2019-03-04 10:43] VITALS: BMI 35.6
== END 2019-03-04 15:15 | DRG 57 ==
PROVIDERS: ADMIT Internal Medicine; ATTEND Internal Medicine
PROC: F07Z9FZ Gait Training/Functional Ambulation Treatment using Assistive, Adaptive, Supportive or Protective Equipment (ICD-10-PCS; principal; 2019-02-23)
PROC: F06Z6MZ Communicative/Cognitive Integration Skills Treatment using Augmentative / Alternative Communication Equipment (ICD-10-PCS; 2019-02-23)
PROC: F08Z4FZ Home Management Treatment using Assistive, Adaptive, Supportive or Protective Equipment (ICD-10-PCS; 2019-02-23)
PROC: F07L6FZ Therapeutic Exercise Treatment of Musculoskeletal System - Lower Back / Lower Extremity using Assistive, Adaptive, Supportive or Protective Equipment (ICD-10-PCS; 2019-02-24)
DX: I69.351 Hemiplegia and hemiparesis following cerebral infarction affecting right dominant side (principal); I69.392 Facial weakness following cerebral infarction; I69.328 Other speech and language deficits following cerebral infarction; F10.10 Alcohol abuse, uncomplicated; F43.20 Adjustment disorder, unspecified; I10 Essential (primary) hypertension; E11.9 Type 2 diabetes mellitus without complications; Z91.19 Patient's noncompliance with other medical treatment and regimen